=== PATIENT | female | born 1950 | race Caucasian/White ===

== ENCOUNTER → 2021-12-23 | Outpatient (CLI) | payer MEDICARE, OTHER ==
[~2021-12-23] MED LIST: ATENOLOL100 MG PO; ATORVASTATIN CA80 MG PO; ELIQUIS5 MG PO; LEVOTHYROXINE125 MCG PO; MULTAQ 400 MG400 MG PO; PAROXETINE HCL20 MG PO; ST. JOSEPH ASPI81 M1 PO; VITAMIN C500 M4 PO
== END | disposition home or self-care (01) ==
LOC: CATH 07:30
DX: I48.19 Other persistent atrial fibrillation (principal); I10 Essential (primary) hypertension; E78.5 Hyperlipidemia, unspecified; E03.9 Hypothyroidism, unspecified; Z86.73 Personal history of transient ischemic attack (TIA), and cerebral infarction without residual deficits; Z79.01 Long term (current) use of anticoagulants; Z79.82 Long term (current) use of aspirin; Z79.899 Other long term (current) drug therapy; Z88.0 Allergy status to penicillin; Z88.2 Allergy status to sulfonamides; Z82.49 Family history of ischemic heart disease and other diseases of the circulatory system; Z82.3 Family history of stroke
CPT/HCPCS: 92960; 93005; J1200; J1742; J2250; J2310; J3010; J7040